=== PATIENT | male | born 1995 | race Caucasian/White ===

== ENCOUNTER 2017-05-23 10:09 | Emergency (ER) | payer SELFPAY ==
[~2017-05-23] VITALS: Ht 180.3 cm; Wt 68.0 kg
[~2017-05-23 10:09] MED LIST: LORTAB 5/500 TA1 TA1 PO; NO MEDICATIONS
[2017-05-23 10:31] LABS: URINE SOURCE CLEAN CATCH
[2017-05-23 10:39] LABS: URINE APPEARANCE CLEAR; URINE BILIRUBIN NEG (NEG); URINE BLOOD NEG (NEG); URINE COLOR YELLOW; URINE GLUCOSE NEG (NEG); URINE KETONE NEG (NEG); URINE LEUKOCYTE ESTERASE TRACE (NEG); URINE NITRATE NEG (NEG); URINE PH 7.5 (5-8); URINE PROTEIN NEG (NEG); URINE SPECIFIC GRAVITY 1.013 (1.003-1.035); URINE UROBILINOGEN 0.2 MG/DL (NEG)
[2017-05-23 10:42] LABS: CULTURE INDICATED? YES; URBCS1 AUWI 0-2 /[HPF] (0-2); URINE BACTERIA AUWI NEG (NEGATIVE); URINE SQUAMOUS EPITHELIAL CELL NONE SEEN /[HPF]
[2017-05-25 04:22] LABS: CHLAMYDIA TRACH Detected (Not Detected); N GONOR Not Detected (Not Detected)
== END 2017-05-23 10:50 | disposition home or self-care (01) ==
LOC: CFTX 10:09 → CED 10:09 → CFTX 10:32
PROVIDERS: Physician Assistant
DX: A56.01 Chlamydial cystitis and urethritis (principal)
CPT/HCPCS: 81003; 87086; 87491; 87591; 96372; 99283; J0696